=== PATIENT | female | born 1955 | race Caucasian/White ===

== ENCOUNTER 2024-01-03 06:16 | Inpatient (IN) | payer OTHER, SELFPAY ==
[2023-12-27 08:38] VITALS: BMI 25.4
[2023-12-27 08:56] LABS: Hematocrit 34.4 % (37.0-47.0); Hemoglobin 10.3 g/dL (12.0-16.0); Mean Corp Hgb Conc. 29.9 g/dL (33.0-37.0); Mean Corpuscular Hgb 21.1 pg (27.0-31.0); Mean Corpuscular Volume 70.6 fL (81.0-99.0); Platelet Count 399 10^3/uL (130-400); Red Blood Cell Count 4.87 10^6/uL (4.20-5.40); Red Cell Dist. Width 20.3 % (11.5-14.5); White Blood Cell Count 11.1 10^3/uL (4.8-10.8)
[2023-12-27 09:26] LABS: Blood Urea Nitrogen 15 mg/dl (7-17); Calcium 9.4 mg/dl (8.4-10.2); Carbon Dioxide 25 mmol/L (22-30); Chloride 103 mmol/L (98-107); Estimated Creatinine Clearance 86 ml/min; Glucose 102 mg/dl (70-99); Potassium 4.5 mmol/L (3.5-5.1); Sodium 138 mmol/L (135-145); eGFR > 60.00
[2023-12-27 09:36] LABS: INR 1.13; PT 14.3 Sec (11.4-14.6)
[2023-12-27 09:37] LABS: APTT 35.4 Sec (23.4-35.0)
[2024-01-03] VITALS (13 sets, daily range): BP systolic 91–126; BP diastolic 45–71; BMI 25.4
[2024-01-03] MEDS: NORMOSOL-R 1000 IV (07:10)
[2024-01-03] MEDS: ZOFRAN 4 MG IV (10:56)
[2024-01-03] MEDS: DILAUDID 0.5 MG IV ×4 (10:59→23:05)
[2024-01-03 11:16] LABS: % Basophils 0.4 % (0-2); % Eosinophils 0.4 % (0-6); % Immature Granulocytes 0.5 % (0-0.5); % Lymphocytes 6.3 % (20.5-51.1); % Monocytes 2.7 % (1.7-9.3); % Neutrophils 89.7 % (42.2-75.2); Absolute Basophils 0.1 10^3/uL (0-0.2); Absolute Eosinophils 0.1 10^3/uL (0-0.7); Absolute Immature Granulocytes 0.1 10^3/uL (0-0.05); Absolute Lymphocytes 0.9 10^3/uL (1.2-3.4); Absolute Monocytes 0.4 10^3/uL (0.1-0.6); Absolute Neutrophils 12.2 10^3/uL (1.4-6.5); Hematocrit 33.1 % (37.0-47.0); Hemoglobin 9.9 g/dL (12.0-16.0); Mean Corp Hgb Conc. 29.9 g/dL (33.0-37.0); Mean Corpuscular Hgb 21.3 pg (27.0-31.0); Mean Corpuscular Volume 71.2 fL (81.0-99.0); Mean Platelet Volume 8.2 fL (7.4-10.4); Nucleated Red Blood Cells % 0 %; Platelet Count 315 10^3/uL (130-400); Red Blood Cell Count 4.65 10^6/uL (4.20-5.40); Red Cell Dist. Width 20.5 % (11.5-14.5); White Blood Cell Count 13.6 10^3/uL (4.8-10.8)
[2024-01-03 11:27] LABS: Blood Urea Nitrogen 10 mg/dl (7-17); Calcium 8.2 mg/dl (8.4-10.2); Carbon Dioxide 23 mmol/L (22-30); Chloride 106 mmol/L (98-107); Estimated Creatinine Clearance 86 ml/min; Glucose 145 mg/dl (70-99); Potassium 4.3 mmol/L (3.5-5.1); Sodium 135 mmol/L (135-145); eGFR > 60.00
[2024-01-03] MEDS: DEMEROL 12.5 MG IV (11:31)
[2024-01-03] MEDS: NSS 1000 IV ×2 (11:36→19:34)
--- NOTE | 2024-01-03 12:37 | PTCARENOTE ---
Patient admitted from pac[facility] post Left laparoscopic hand assisted radical nephrectomy.The patient reports her pain at a 5-6 out of 10 but then will fall asleep.Vital signs are stable.All 3 incisions are open to air with no drainage.The patient is in
her bed with the call ramos in reach and her family at the bedside.
[2024-01-03 14:29] LABS: Hepatitis C Antibody Negative (Negative)
[2024-01-03] MEDS: REGLAN 10 MG IV (15:00)
[2024-01-03] MEDS: MAG-TAB SR 84 MG PO (17:07)
[2024-01-03] MEDS: SENOKOT 8.59999999999999964 MG PO (19:34)
[2024-01-03] MEDS: FLUSH (NSS) 1 FLUSH IV (23:04)
[2024-01-04 03:12] VITALS: BP 97/64
[2024-01-04] MEDS: PERCOCET 5/325 2 TABLET PO ×4 (04:43→21:01)
[2024-01-04] MEDS: SYNTHROID 75 MCG PO (05:55)
[2024-01-04 06:26] LABS: Hematocrit 32.6 % (37.0-47.0); Hemoglobin 9.5 g/dL (12.0-16.0); Mean Corp Hgb Conc. 29.1 g/dL (33.0-37.0); Mean Corpuscular Hgb 21.1 pg (27.0-31.0); Mean Corpuscular Volume 72.4 fL (81.0-99.0); Mean Platelet Volume 8.2 fL (7.4-10.4); Platelet Count 337 10^3/uL (130-400); Red Cell Dist. Width 20.2 % (11.5-14.5); White Blood Cell Count 15.8 10^3/uL (4.8-10.8)
[2024-01-04 06:54] LABS: Blood Urea Nitrogen 14 mg/dl (7-17); Calcium 8.8 mg/dl (8.4-10.2); Carbon Dioxide 23 mmol/L (22-30); Chloride 105 mmol/L (98-107); Estimated Creatinine Clearance 57 ml/min; Glucose 110 mg/dl (70-99); Potassium 4.6 mmol/L (3.5-5.1); Sodium 135 mmol/L (135-145); eGFR > 60.00
[2024-01-04 07:58] VITALS: BP 124/65
[2024-01-04] MEDS: SENOKOT 8.59999999999999964 MG PO ×2 (08:01→20:11)
--- NOTE | 2024-01-04 10:46 | CM ---
Addendum entered by Sdaa Galvez 01/04/24 14:08:
Accepted by [facility] for home care needs
Fax- [phone]
Original Note:
Chart reviewed. Spoke with pt at bedside
Pt lives with her adult grandson in multi-story home
Independent, retired, driving prior to admission
Has dme - rolling walker, shower chair, cane and commode in home
Denies past HH/SNF
PCP - Dr Chandan Gordon
Pharm - [facility], [place]
Discussed IMM
Received consult for VN - no preference - will refer to [facility]
CM will follow for d/c needs
Plan - home with - [facility]
[2024-01-04 11:13] VITALS: BP 121/77
--- NOTE | 2024-01-04 12:07 | W.PN.URO.CBU ---
Today's Communication / Plan
-
Post op care
discharge planning
Assessment / Plan
-
68F s/p lap hand assist L radical nephrectomy 01/03
- OOB/ambulate
- IS
- Regular diet
- AM labs and vitals stable
- CM for home care
- Plan for discharge tomorrow
Diagnosis
-
Date of Service: January 04, 2024
-
Patient Diagnosis:
L renal mass
Post Op Day:
s/p L nephrectomy 01/03
Subjective
-
adequate pain control
tolerating diet
has not ambulated
Objective
-
Vital Signs
Temp Pulse Resp BP Pulse Ox
97.8 F 70 18 121/77 93
01/04/24 11:13 01/04/24 11:13 01/04/24 11:13 01/04/24 11:13 01/04/24 11:13
Intake and Output
01/03/24 01/04/24 01/05/24
06:59 06:59 06:59
Intake Total 3750 / 3750
Output Total 2074
Balance 1675 / 1675
Intake:
Oral fluids 1800 / 1800
IV fluids (Total) 1950 / 1950
normosol 250 / 250
nss 50 / 50
Output:
Urine, [place] 2074
Laboratory Results
01/04/24 05:16
01/04/24 05:16
Physical Exam
-
General - well developed, well nourished, no acute distress
Chest - clear
Abdomen - soft, non-tender, positive bowel sounds, no CVAT, no incisional pain or distention
Skin - warm & dry with no rash
Neuro - AOx3, no motor deficits
Extremities - no clubbing, no cyanosis, no edema
Incision - clean, dry
Dressing - clean, dry, intact
[2024-01-04] MEDS: ZOFRAN 4 MG IV (12:40)
[2024-01-04 15:23] VITALS: BP 104/61
[2024-01-04] MEDS: MAG-TAB SR 84 MG PO (17:16)
[2024-01-04 23:39] VITALS: BP 115/63
[2024-01-05 06:20] LABS: Hematocrit 31.7 % (37.0-47.0); Hemoglobin 9.5 g/dL (12.0-16.0); Mean Corpuscular Hgb 21.1 pg (27.0-31.0); Mean Corpuscular Volume 70.4 fL (81.0-99.0); Mean Platelet Volume 7.9 fL (7.4-10.4); Platelet Count 348 10^3/uL (130-400); Red Cell Dist. Width 20.5 % (11.5-14.5); White Blood Cell Count 10.3 10^3/uL (4.8-10.8)
[2024-01-05] MEDS: SYNTHROID 75 MCG PO (06:21)
[2024-01-05 07:03] LABS: Blood Urea Nitrogen 16 mg/dl (7-17); Calcium 8.9 mg/dl (8.4-10.2); Carbon Dioxide 28 mmol/L (22-30); Chloride 104 mmol/L (98-107); Estimated Creatinine Clearance 43 ml/min; Glucose 88 mg/dl (70-99); Potassium 4.9 mmol/L (3.5-5.1); Sodium 139 mmol/L (135-145)
[2024-01-05 08:00] VITALS: BP 116/64
[2024-01-05] MEDS: PERCOCET 5/325 1 TABLET PO (10:01)
[2024-01-05] MEDS: SENOKOT PO (10:03)
--- NOTE | 2024-01-05 10:20 | CM ---
Chart reviewed. Spoke with pt at bedside
Planned d/c for today
Has ride to home
[facility] accepted for home [facility]
Plan - d/c to home with [facility] - [facility] when medically stable
[facility] -Fax- [phone]
--- NOTE | 2024-01-05 11:50 | W.PN.URO.CBU ---
Today's Communication / Plan
-
Discharge
Assessment / Plan
-
68F s/p lap hand assist L radical nephrectomy 01/03
- OOB/ambulate
- IS
- Regular diet
- AM labs and vitals stable
- CM for home care
- Discharge today
Diagnosis
-
Date of Service: January 05, 2024
-
Patient Diagnosis:
L renal mass
Post Op Day:
s/p L nephrectomy 01/03
Subjective
-
feeling well, minimal pain well controlled
ambulated
tolerating diet
mild nausea no vomiting
Objective
-
Vital Signs
Temp Pulse Resp BP Pulse Ox
97.7 F 64 18 116/64 93
01/05/24 08:00 01/05/24 08:00 01/05/24 08:00 01/05/24 08:00 01/05/24 08:00
Intake and Output
01/04/24 01/05/24 01/06/24
06:59 06:59 06:59
Intake Total 3750 / 3750 1200 / 1200
Output Total 2074
Balance 1675 / 1675 1200 / 1200
Intake:
Oral fluids 1800 / 1800 1200 / 1200
IV fluids (Total) 1950 / 1950
normosol 250 / 250
nss 50 / 50
Output:
Urine, [place] 2074
Other:
Number of approximated MODERATE 1
amounts of urine
Number of approximated LARGE 1
amounts of urine
Laboratory Results
01/05/24 05:32
01/05/24 05:32
Physical Exam
-
General - well developed, well nourished, no acute distress
Chest - clear bilaterally
Abdomen - soft, non-tender, positive bowel sounds, no CVAT
Skin - warm & dry with no rash
Neuro - AOx3, no motor deficits
Extremities - no clubbing, no cyanosis, no edema
Incision - clean, dry
Dressing - clean, dry, intact
--- NOTE | 2024-01-05 13:30 | W.DS.TRANS ---
DC Summary - Coordinator Of Online Programs
-
Discharge Instructions:
Sleep Apnea Risk Low
Discharge Diagnosis/Procedures Left renal mass
Laparoscopic left nephrectomy
Diet No restrictions
Activity No strenuous activity
Additional Activity avoid lifting and straining for 4 weeks post
surgery
Driving Restrictions don't drive while taking percocet
Bathing Restrictions OK to Shower
Wound Care gently rinse incisions in the shower. Don't
scrub or pick off skin glue
Instructions:
Stand-Alone Forms:
Changes to Home Medications: No
Discharge Medications:
DC Medications w/original date entered in [employer]
ascorbic acid (vitamin C) 500 mg tablet (Vitamin C) 500 mg PO DAILY PRN supplement 11/12/23
bismuth subsalicylate 262 mg/15 mL oral suspension (Pepto-Bismol) 524 mg PO DAILYPRN PRN stomach discomfort 11/12/23
levothyroxine 75 mcg tablet 75 mcg PO DAILY Thyroid 11/12/23
magnesium 250 mg tablet 250 mg PO QPM Supplement 11/12/23
vitamin B complex 1 tab PO DAILY Supplement 11/12/23
cholecalciferol (vitamin D3) 50 mcg (2,000 unit) tablet (Vitamin D3) 50 mcg PO QPM Supplement 12/30/23
omega-3 fatty acids 1,000 mg PO DAILY Supplement 12/30/23
ondansetron 4 mg disintegrating tablet 4 mg PO Q8H PRN nausea #15 tabs 01/05/24
oxycodone-acetaminophen 5 mg-325 mg tablet 1 tab PO Q4HPRN PRN moderate pain #15 tabs 01/05/24
Home Medication Changes
Pending Results: Yes
Additional Pending Results:
pathology
== END 2024-01-05 15:53 | disposition home health service (06) | DRG 658 ==
LOC: 2 SOUTH 06:16
PROVIDERS: ADMITTING PHYSICIAN Urology; FAMILY PHYSICIAN Family Medicine
PROC: 0TT14ZZ Resection of Left Kidney, Percutaneous Endoscopic Approach (ICD-10-PCS; 2024-01-03)
DX: C64.2 Malignant neoplasm of left kidney, except renal pelvis (principal); N28.89 Other specified disorders of kidney and ureter; Z88.0 Allergy status to penicillin; Z88.5 Allergy status to narcotic agent
CPT/HCPCS: 88307; 36415; 80048; 85025; 85027; 85610; 85730; 86803; 86850; 86900; 86901; 88341; 88342; 93005

== ENCOUNTER 2024-07-08 23:04 | Inpatient (IN) | payer OTHER, SELFPAY ==
[2024-07-08 14:50] VITALS: BP 133/85
[2024-07-08 15:18] LABS: Urine Albumin Negative (Neg - Trace); Urine Bilirubin Negative (Negative); Urine Character Clear (Clear); Urine Color Yellow; Urine Glucose Negative (Negative); Urine Ketone Negative (Negative); Urine Leukocyte Trace (Negative); Urine Nitrite Negative (Negative); Urine Occult Blood Negative (Negative); Urine Urobilinogen Negative (Neg - 1+)
[2024-07-08 15:21] LABS: % Basophils 0.5 % (0-2); % Eosinophils 0.8 % (0-6); % Immature Granulocytes 0.3 % (0-0.5); % Lymphocytes 19.9 % (20.5-51.1); % Monocytes 7.9 % (1.7-9.3); % Neutrophils 70.6 % (42.2-75.2); Absolute Basophils 0.1 10^3/uL (0-0.2); Absolute Eosinophils 0.1 10^3/uL (0-0.7); Absolute Lymphocytes 2.6 10^3/uL (1.2-3.4); Absolute Neutrophils 9.2 10^3/uL (1.4-6.5); Hematocrit 37.5 % (37.0-47.0); Hemoglobin 12.4 g/dL (12.0-16.0); Mean Corp Hgb Conc. 33.1 g/dL (33.0-37.0); Mean Corpuscular Hgb 26.1 pg (27.0-31.0); Mean Corpuscular Volume 78.9 fL (81.0-99.0); Mean Platelet Volume 8.1 fL (7.4-10.4); Nucleated Red Blood Cells % 0 %; Platelet Count 283 10^3/uL (130-400); Red Blood Cell Count 4.75 10^6/uL (4.20-5.40); Red Cell Dist. Width 15.6 % (11.5-14.5)
[2024-07-08 15:30] LABS: Urine Bacteria Few (Negative); Urine Red Blood Cell 0-2 /HPF (0-2); Urine White Cell 0-2 /HPF (0-5)
[2024-07-08 15:34] LABS: ALT (SGPT) 16 U/L (0-35); AST (SGOT) 28 U/L (14-36); Albumin 4.5 g/dl (3.5-5.0); Alkaline Phosphatase 119 U/L (38-126); Blood Urea Nitrogen 17 mg/dl (7-17); Calcium 9.7 mg/dl (8.4-10.2); Carbon Dioxide 25 mmol/L (22-30); Chloride 100 mmol/L (98-107); Glucose 110 mg/dl (70-99); Lipase 190 U/L (23-300); Sodium 136 mmol/L (135-145); Total Bilirubin 0.6 mg/dl (0.2-1.3); Total Protein 7.7 g/dl (6.3-8.2)
[2024-07-08] MEDS: ZOFRAN 4 MG IV (19:01)
[2024-07-08] MEDS: DILAUDID 0.5 MG IV (19:01)
[2024-07-08] MEDS: NSS 1000 IV (19:02)
[2024-07-08 20:00] VITALS: BP 123/81
[2024-07-08 21:00] VITALS: BP 134/72
[2024-07-08 21:00] LABS: COVID-19 Antigen Negative (Negative)
[2024-07-08] MEDS: ATIVAN 0.5 MG IV (21:11)
--- NOTE | 2024-07-08 21:18 | ED.GENMED ---
History of Present Illness
<Lexie Valero NP - Last Filed: 07/09/24 18:38>
General
Chief Complaint: Back Pain
Source: patient
Exam Limitations: none
Time Seen by Provider: 07/08/24 17:56
Nursing documentation reviewed up to this point in time: agreed with
History of Present Illness
History of Present Illness:
Patient to ED with complaint ofworsening back pain. States she was trying to open a large container approx 1 mos ago and pain started after that. SInce then pain continues to worsen. Denies fever/chills, n/v/d. No bowel or baldder issues. Denies
any weakness in extremities. Pain does not radiate. No saddle paresthesia. Brought to ED by family for eval. SHe was here in Oct, dx with cholecystitis, underwent cholecystectomy. During that work up, a tumor was noted on her left kidney. She
had an MRI in November comfirming cancer. SHe had a left nephrectomy in November. No chemo/radiation warranted according to patient. States she has been feeling well until 1 mos ago. Has Chest/abd/pelvis CT ordered for outpatient tomorrow. WIll
obtain tonight,
Past History
<Lexie Valero NP - Last Filed: 07/09/24 18:38>
Past History
ED Past Medical History: Cancer (Kidney) and Hypothyroidism (Gerson's thyroiditis)
ED Past Surgical History: Cholecystectomy, Orthopedic and Tonsilectomy
Social History
Tobacco: Non-smoker
Alcohol: None
Drug: None
Personal: Single
Living: with family
Employment: Employed (Works in childcare)
Review of Systems
<Lexie Valero NP - Last Filed: 07/09/24 18:38>
Review of Systems
Allergies reviewed?: Yes
All Other Systems: ROS reviewed and negative except as documented in HPI and ROS
Constitutional: Reports no symptoms
EENT: Reports no symptoms
Respiratory: Reports no symptoms
Cardiac: Reports no symptoms
ABD/GI: Reports no symptoms
: Reports no symptoms
Musculoskeletal: Reports back pain (Pain to bilateral lower back)
Skin: Reports no symptoms
Neurological: Reports no symptoms
Psychiatric: Reports no symptoms
Phy Exam
<Lexie Valero VEHICLE REFINISHER - Last Filed: 07/09/24 18:38>
General Physical Exam
General Presentation: well appearing and no apparent distress
General age: appears stated age
General Skin: warm and dry
General Habitus: normal
General Mental: alert
Cardiovascular Exam
Cardiovascular Exam: regular rate/rhythm and no edema
Pulmonary Exam
Pulmonary Exam: lungs clear and no respiratory distress
Gastrointestinal Exam
Gastrointestinal Exam: normal bowel sounds, non tender and soft
Reflexes
Reflexes: +3: Left patellar, +3: Right patellar, +3: Left achilles and +3: Right achilles
Musculoskeletal Exam
Musculoskeletal Exam: full ROM and neuro vasc intact
Skin Exam
Skin Exam: normal color, warm/dry and no rash
Psychiatric Exam
Psychiatric Exam: normal mood/affect
Course
<Lexie Valero VEHICLE REFINISHER - Last Filed: 07/09/24 18:38>
Orders/Labs/Results
Orders:
Orders
07/08/24 15:02
CBC/With Diff [Complete Blood Count/With Diff] Urgent
CMP [Comprehensive Metabolic Panel] Urgent
Lipase Urgent
Urinalysis Reflex To Culture Urgent
Date Specimen was Collected: 07/08/24
Time Specimen was Collected: 14:53
Urine Microscopic Reflex Cult Urgent
07/08/24 18:46
HYDROmorphone [Dilaudid] 0.5 mg IV NOW STA
Ondansetron Injectable [Zofran] 4 mg IV NOW STA
07/08/24 18:47
0.9% Sodium Chloride 1000 ml [Nss] 1,000 ml IV BOLUS
07/08/24 18:48
CT Chest/abd/pel W Iv Cont Urgent
Comment:
Reason For Exam: severe back pain. S/p left nephrectomy. Hx CA
07/08/24 20:30
COVID-19 Antigen Urgent
Source: Nasal Swab
07/08/24 21:05
Lorazepam [Ativan] 2 mg .ROUTE .STK-MED ONE
07/08/24 21:06
Lorazepam [Ativan] 0.5 mg IV NOW STA
07/08/24 21:33
Neurosurgery Consult Urgent
Consulting Provider: Jasmin Santiago
Was physician already notified: Yes
ONCOLOGY CONSULT Urgent
Consulting Provider: Vivienne Swanson
Was physician already notified: Yes
07/08/24 21:[address] Non Medication Order As Directed
Physician Order: TLSO brace
Above order entered?: Yes
07/08/24 22:47
Admit/Transfer Patient As Directed
Co-Sign Provider:
Level of Care: Inpatient admission
Assign to:: Medical/Surgical
Physician / Group: shmuel/hospitalist
Diagnosis: [id number] vertebral body w epidural extension of the soft tissue
Reason for Hospitalization: fracture of the T11 vertebral body with epidural extension of the soft tissue mass
Expected length of stay greater than two midnights?: Yes
ELOS- Estimated Length of Stay in days: 4
I certify the patient meets the requirements for IP care: Yes
PRN Pain Medication Management As Directed
May give lesser potent ordered pain med per pt: Yes
preference::
Protocol:: Medication orders for pain may be administered in a
manner that supports deferring to patient preference
when the pt is:
- Requesting an ordered lesser potent pain medication.
Least to most potent pain medications are defined
as: acetaminophen < NSAID < tramadol < opioids
(morphine, oxycodone, hydromorphone).
- Requesting a lesser dose of the same medication IF
ORDERED.
- Requesting a less intrusive route of administration
if both routes are prescribed by the provider (PO <
IV).
07/08/24 22:50
Code Status As Directed
Resuscitation Status: Full Code
07/08/24 23:40
0.9% Sodium Chloride 1000 ml [Nss] 1,000 ml IV 75 mls/hr
Acetaminophen [Tylenol] 650 mg PO Q4HPRN PRN
Bisacodyl [Dulcolax] 10 mg RECTAL [id number] PRN
Docusate W/Senna [Senokot-S] 1 tablet PO BIDPRN PRN
HYDROmorphone [Dilaudid] 0.5 mg IV Q4HPRN PRN
Lorazepam [Ativan] 0.5 mg IV ONCE PRN
Polyethylene Glycol Powder [Miralax] 17 grams PO DAILYPRN PRN
07/08/24 23:40
Activity As Directed
Activity Level: With Assistance
Neurological Checks As Directed
Frequency: q4h
Pneumatic Compression Sleeves As Directed
Type: Knee high
Vital Signs As Directed
Frequency: Per unit guidelines
DX Deep Vein Thrombosis Video Routine
07/09/24 06:00
Levothyroxine [Synthroid] 75 mcg PO DAILY @ 0600
07/09/24 09:27
Basic Metabolic Panel IN AM
Complete Blood Count/With Diff IN AM
Abnormal Lab Results
07/08/24
15:02
WBC 13.0 H 10^3/uL
(4.8-10.8)
MCV 78.9 L fL
(81.0-99.0)
MCH 26.1 L pg
(27.0-31.0)
RDW 15.6 H %
(11.5-14.5)
Absolute Neuts (auto) 9.2 H 10^3/uL
(1.4-6.5)
Absolute Monos (auto) 1.0 H 10^3/uL
(0.1-0.6)
Lymphocytes % 19.9 L %
(20.5-51.1)
Creatinine 1.2 H mg/dL
(0.6-1.0)
Glucose 110 H mg/dl
(70-99)
Leukocyte Esterase Rfl Trace A
(Negative)
Urine Bacteria (Reflex) Few A
(Negative)
07/08/24 15:02
07/08/24 15:02
Vital Signs
Initial and Last Documented VS:
Initial Vital Signs
Temp Pulse Resp BP Pulse Ox
97.6 F 70 18 133/85 97
07/08/24 14:50 07/08/24 14:50 07/08/24 14:50 07/08/24 14:50 07/08/24 14:50
Last Documented Vital Signs
Temp Pulse Resp BP Pulse Ox
98.2 F 74 16 157/84 96
07/09/24 15:10 07/09/24 15:10 07/09/24 15:10 07/09/24 15:10 07/09/24 15:10
<Rylan Kothari, DO - Last Filed: 07/08/24 23:07>
Orders/Labs/Results
Orders:
Orders
07/08/24 15:02
CBC/With Diff [Complete Blood Count/With Diff] Urgent
CMP [Comprehensive Metabolic Panel] Urgent
Lipase Urgent
Urinalysis Reflex To Culture Urgent
Date Specimen was Collected: 07/08/24
Time Specimen was Collected: 14:53
Urine Microscopic Reflex Cult Urgent
07/08/24 18:46
HYDROmorphone [Dilaudid] 0.5 mg IV NOW STA
Ondansetron Injectable [Zofran] 4 mg IV NOW STA
07/08/24 18:47
0.9% Sodium Chloride 1000 ml [Nss] 1,000 ml IV BOLUS
07/08/24 18:48
CT Chest/abd/pel W Iv Cont Urgent
Comment:
Reason For Exam: severe back pain. S/p left nephrectomy. Hx CA
07/08/24 20:30
COVID-19 Antigen Urgent
Source: Nasal Swab
07/08/24 21:05
Lorazepam [Ativan] 2 mg .ROUTE .STK-MED ONE
07/08/24 21:06
Lorazepam [Ativan] 0.5 mg IV NOW STA
07/08/24 21:33
Neurosurgery Consult Urgent
Consulting Provider: Jasmin Santiago
Was physician already notified: Yes
ONCOLOGY CONSULT Urgent
Consulting Provider: Vivienne Swanson
Was physician already notified: Yes
07/08/24 21:[address] Non Medication Order As Directed
Physician Order: TLSO brace
Above order entered?: Yes
07/08/24 22:47
Admit/Transfer Patient As Directed
Co-Sign Provider:
Level of Care: Inpatient admission
Assign to:: Medical/Surgical
Physician / Group: shmuel/hospitalist
Diagnosis: [id number] vertebral body w epidural extension of the soft tissue
Reason for Hospitalization: fracture of the T11 vertebral body with epidural extension of the soft tissue mass
Expected length of stay greater than two midnights?: Yes
ELOS- Estimated Length of Stay in days: 4
I certify the patient meets the requirements for IP care: Yes
PRN Pain Medication Management As Directed
May give lesser potent ordered pain med per pt: Yes
preference::
Protocol:: Medication orders for pain may be administered in a
manner that supports deferring to patient preference
when the pt is:
- Requesting an ordered lesser potent pain medication.
Least to most potent pain medications are defined
as: acetaminophen < NSAID < tramadol < opioids
(morphine, oxycodone, hydromorphone).
- Requesting a lesser dose of the same medication IF
ORDERED.
- Requesting a less intrusive route of administration
if both routes are prescribed by the provider (PO <
IV).
07/08/24 22:50
Code Status As Directed
Resuscitation Status: Full Code
07/08/24 23:40
0.9% Sodium Chloride 1000 ml [Nss] 1,000 ml IV 75 mls/hr
Acetaminophen [Tylenol] 650 mg PO Q4HPRN PRN
Bisacodyl [Dulcolax] 10 mg RECTAL [id number] PRN
Docusate W/Senna [Senokot-S] 1 tablet PO BIDPRN PRN
HYDROmorphone [Dilaudid] 0.5 mg IV Q4HPRN PRN
Lorazepam [Ativan] 0.5 mg IV ONCE PRN
Polyethylene Glycol Powder [Miralax] 17 grams PO DAILYPRN PRN
07/08/24 23:40
Activity As Directed
Activity Level: With Assistance
Neurological Checks As Directed
Frequency: q4h
Pneumatic Compression Sleeves As Directed
Type: Knee high
Vital Signs As Directed
Frequency: Per unit guidelines
DX Deep Vein Thrombosis Video Routine
07/09/24 06:00
Levothyroxine [Synthroid] 75 mcg PO DAILY @ 0600
07/09/24 09:27
Basic Metabolic Panel IN AM
Complete Blood Count/With Diff IN AM
Abnormal Lab Results
07/08/24
15:02
WBC 13.0 H 10^3/uL
(4.8-10.8)
MCV 78.9 L fL
(81.0-99.0)
MCH 26.1 L pg
(27.0-31.0)
RDW 15.6 H %
(11.5-14.5)
Absolute Neuts (auto) 9.2 H 10^3/uL
(1.4-6.5)
Absolute Monos (auto) 1.0 H 10^3/uL
(0.1-0.6)
Lymphocytes % 19.9 L %
(20.5-51.1)
Creatinine 1.2 H mg/dL
(0.6-1.0)
Glucose 110 H mg/dl
(70-99)
Leukocyte Esterase Rfl Trace A
(Negative)
Urine Bacteria (Reflex) Few A
(Negative)
07/08/24 15:02
07/08/24 15:02
Vital Signs
Initial and Last Documented VS:
Initial Vital Signs
Temp Pulse Resp BP Pulse Ox
97.6 F 70 18 133/85 97
07/08/24 14:50 07/08/24 14:50 07/08/24 14:50 07/08/24 14:50 07/08/24 14:50
Last Documented Vital Signs
Temp Pulse Resp BP Pulse Ox
98.2 F 74 16 157/84 96
07/09/24 15:10 07/09/24 15:10 07/09/24 15:10 07/09/24 15:10 07/09/24 15:10
<Lexie Valero NP - Last Filed: 07/09/24 18:38>
*Radiology
Radiology exam reviewed: radiology read reviewed
*Pulse Oximetry
Patient hypoxic: no
*Critical Care Note
Total Time (30-74mins, 75-104mins- exclusive of procedures): Not Applicable
<Lexie Valero NP - Last Filed: 07/09/24 18:38>
Update Note
Update Note:
Results of CT discussed wt patient and family. Case also discussed with Dr. Santiago. Requests MRI in AM, TLSO brace. Patient is admitted to hospitalist service. SHe is agreeable to plan. Dr. Swanson (oncology) consulted also
ED Attending Note
<Lexie Valero NP - Last Filed: 07/09/24 18:38>
-
Portions of this chart may have been created with voice recognition software.� Occasional wrong word or��sound alike� substitutions may have occurred due to the inherent limitations of voice recognition software.
<Rylan Kothari DO - Last Filed: 07/08/24 23:07>
ED Attending Note
Patient seen and examined by attending physician: Yes
I performed the substantive portion of visit, reviewed & personally made and approve the management plan that is documented in note by myself or TAM.: Yes
ED Attending Note:
68-year-old female with unfortunate history of kidney cancer who presents after she developed back pain. unfortunately CT shows suspected spine mets. Exam: No focal lower extremity deficits. Assessment and plan: VEHICLE REFINISHER was able to discussed with spine
surgery. Admit. Likely could benefit from TLSO brace and MRI
Discharge Plan
Departure
Patient Disposition: Admit
Date of Disposition: 07/08/24
Time of Disposition: 21:27
Presentation/result/management discussed w/ accepting MD/DO: Hospitalist
Discharge Problem:
Back pain, Pathologic fracture of vertebra, thoracic canal stenosis
Interventions
Interventions:
*General Assessment Last Done: 07/08/24 19:03
*Neglect/Abuse Screening Last Done: 07/08/24 19:03
*Nursing Disposition Last Done: 07/08/24 23:33
ED-Musculoskeletal Assessment Last Done: 07/08/24 19:03
Discharge Date and Time
Discharge Date/Time: 07/08/24 23:33
Musculoskeletal Injury Exam
<Lexie Valero NP - Last Filed: 07/09/24 18:38>
Musculoskeletal Injury Exam
Bilateral Lower Back:
Pain with Movement?: Moderate
Tender to palpation?: Moderate
Soft tissue swelling?: None
External deformity and angulation?: None
Joint effusion?: None
Hematoma-local bleeding into tissue?: None
Strain- Sprain- Tear (Connective tissue injury)?: None
Crepitus with movement?: No
Joint instability?: No
Malalignment/deformity?: No
Range of motion: Full
Distal skin color and temperature: normal-warm & good color
Capillary Refill: normal
Normal distal neurovascular exam?: Yes
Peripheral Pulses: posterior tibial (left): 3+, posterior tibial (right): 3+, dorsalis pedis (left): 3+ and dorsalis pedis (right): 3+
--- NOTE | 2024-07-08 22:18 | HPS.HSE ---
Addendum entered and electronically signed by Alexandria Carter, DO 07/08/24 23:09:
Pt requesting Ativan prior to MRI in order to tolerate MRI-ordered prn dose for this.
Original Note:
Family Physician
-
Family Physician: NOT KNOW UNKNOWN - PT DOES
Chief Complaint
-
back pain, worsening
History of Present Illness
The patient is a 68 yo woman with PMH significant for hypothyroidism and status post Laparoscopic hand assisted left radical nephrectomy on 01/03/2024 for large left renal mass without post-operative complications, who had follow-up with
[facility], presents to ED due to low back pain that is persistent and intractable, worsening for the past 1 month. No fever, no chills, no bowel or bladder dysfunction, no motor deficits that are new. She was scheduled for OP CT c/a/p for
tomorrow. Imaging today shows
Medical History
Past Medical History
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
Additional Past Medical History:
Hypothyroidism
Past Surgical History: Reports Cholecystectomy, Orthopedic (left ankle sx with plate 02/2019), Tonsilectomy (and adenoidectomy) and Other (Laparoscopic hand assisted left radical nephrectomy on 01/03/2024)
Social History
Unable to obtain full social history at this time due to: Other
Tobacco: Non-smoker
Alcohol: None
Drug: None
Family History
Family History: CAD (brother-SC and stent), Cancer (colon and esophageal-cousins) and Other
Allergies / Home Medications
Allergies reflects when Allergies were last updated in [employer].
Home Medications with original date entered in [employer]
Allergy/Medication List:
Allergies
Allergy/AdvReac Type Severity Reaction Status Date / Time
hydrocodone Allergy HEADACHES, Verified 07/08/24 14:52
SHAKEY
Penicillins Allergy HEMOLYTIC Verified 07/08/24 14:52
ANEMIA
pollen extracts Allergy ENVIRONMENTAL Verified 07/08/24 14:52
ALLERGIES
Home Medications
ascorbic acid (vitamin C) 500 mg tablet (Vitamin C) 500 mg PO DAILY PRN supplement 11/12/23
bismuth subsalicylate 262 mg/15 mL oral suspension (Pepto-Bismol) 524 mg PO DAILYPRN PRN stomach discomfort 11/12/23
levothyroxine 75 mcg tablet 75 mcg PO DAILY Thyroid 11/12/23
magnesium 250 mg tablet 250 mg PO QPM Supplement 11/12/23
vitamin B complex 1 tab PO DAILY Supplement 11/12/23
cholecalciferol (vitamin D3) 50 mcg (2,000 unit) tablet (Vitamin D3) 50 mcg PO QPM Supplement 12/30/23
omega-3 fatty acids 1,000 mg PO DAILY Supplement 12/30/23
ondansetron 4 mg disintegrating tablet 4 mg PO Q8H PRN nausea #15 tabs 01/05/24
oxycodone-acetaminophen 5 mg-325 mg tablet 1 tab PO Q4HPRN PRN moderate pain #15 tabs 01/05/24
Review of Systems
-
A 12 point ROS was completed and negative except as noted: Yes
Physical Exam
Vital Signs
Vital Signs
Temp Pulse Resp BP Pulse Ox
97.6 F 87 21 134/72 96
07/08/24 14:50 07/08/24 21:15 07/08/24 20:30 07/08/24 21:00 07/08/24 20:45
Physical Exam
General: Well Developed, Well Nourished, No Apparent Distress, Comfortable and Conversant
HEENT: NormoCephalic, Anicteric and Moist mucous membranes
Respiratory: Clear
Cardiac: S1/S2 and Regular Rhythm
GI: Soft, Non Tender and Non Distended
Musculoskeletal: No Clubbing, No Cyanosis and No Edema
Skin: Warm and Dry
Neuro: AO x 3, No Motor Deficits and Nonfocal/grossly intact
Psych: Calm
Laboratory Results
-
07/08/24 15:02
07/08/24 15:
Laboratory Results
Total Bilirubin 0.6 mg/dl (0.2-1.3) 07/08/24 15:
AST 28 U/L (14-36) 07/08/24 15:
ALT 16 U/L (0-35) 07/08/24 15:
Alkaline Phosphatase 119 U/L (38-126) 07/08/24 15:
Lipase 190 U/L (23-300) 07/08/24 15:
Impression/Plan
-
IMPRESSION:
#Clear cell renal cell carcinoma pathology 12/2023 s/p nephrectomy
#Pathologic fracture T11 with epidural extension soft tissue mass
-CT c/a/p show a pathologic fracture of the T11 vertebral body with epidural extension of the soft tissue mass and associated moderate/severe narrowing of the spinal canal at this level.
-The lesion appears to extend into the posterior elements on the left.
-Neurosurgery consulted from ED-rec is for MRI with and without contrast for further evaluation an evaluation of possible additional spinal metastases.
-TLSO brace - will get PT eval
-Oncology consultation
-noted definite metastatic disease within the abdomen or pelvis. No suspicious pulmonary nodules.
#Leukocytosis, WBC 13.0
-likely reactive, no evidence for acute infection at this time, monitor
#RADHA (baseline 0.9)
-Creat 1.2
-IVF and repeat creat in am
#Hypothyroidism
-cont Synthroid
Med rec pending at this time
DVT proph-PCDs
NPO p mn in case of procedure pending Neurosurgery recs
Full Code
[2024-07-08 23:40] VITALS: BP 137/76; BMI 31.1
[2024-07-09] MEDS: NSS 1000 IV (00:01)
[2024-07-09] MEDS: SYNTHROID 75 MCG PO (05:33)
[2024-07-09 07:30] VITALS: BP 118/66
[2024-07-09] MEDS: DILAUDID 0.5 MG IV (08:10)
[2024-07-09] MEDS: IMITREX 25 MG PO (08:10)
--- NOTE | 2024-07-09 09:29 | PTCARENOTE ---
Assumed care of pt from previous RN. Patient AAOx3, complaining of a headache, refusing PRN tylenol. Order for one time imitrex placed; administered with adequate relief. Patient and daughter at bedside updated on plan of care.
[2024-07-09 10:07] LABS: % Basophils 0.7 % (0-2); % Eosinophils 3.4 % (0-6); % Immature Granulocytes 0.4 % (0-0.5); % Monocytes 7.4 % (1.7-9.3); % Neutrophils 69.1 % (42.2-75.2); Absolute Basophils 0.1 10^3/uL (0-0.2); Absolute Eosinophils 0.3 10^3/uL (0-0.7); Absolute Lymphocytes 1.9 10^3/uL (1.2-3.4); Absolute Monocytes 0.7 10^3/uL (0.1-0.6); Absolute Neutrophils 6.8 10^3/uL (1.4-6.5); Hematocrit 34.5 % (37.0-47.0); Hemoglobin 11.1 g/dL (12.0-16.0); Mean Corp Hgb Conc. 32.2 g/dL (33.0-37.0); Mean Corpuscular Hgb 25.6 pg (27.0-31.0); Mean Corpuscular Volume 79.5 fL (81.0-99.0); Mean Platelet Volume 8.3 fL (7.4-10.4); Nucleated Red Blood Cells % 0 %; Platelet Count 245 10^3/uL (130-400); Red Blood Cell Count 4.34 10^6/uL (4.20-5.40); Red Cell Dist. Width 15.9 % (11.5-14.5); White Blood Cell Count 9.8 10^3/uL (4.8-10.8)
[2024-07-09] MEDS: ATIVAN 0.5 MG IV (10:20)
[2024-07-09] MEDS: NSS (PRESERVATIVE FREE) 0.25 ML IV (10:20)
[2024-07-09 10:51] LABS: Blood Urea Nitrogen 13 mg/dl (7-17); Calcium 8.9 mg/dl (8.4-10.2); Carbon Dioxide 24 mmol/L (22-30); Chloride 108 mmol/L (98-107); Estimated Creatinine Clearance 51 ml/min; Glucose 102 mg/dl (70-99)
[2024-07-09 11:09] LABS: Sodium 137 mmol/L (135-145)
--- NOTE | 2024-07-09 12:37 | CM ---
Addendum entered by Josefina Lyons 07/09/24 15:43:
Patient for transfer to [place].
Original Note:
Patient seen bedside with daughter, Kari, initial assessment completed. Patient resides independently in a multiple story home, 'a few' steps to enter. Patient reports having a quad cane at home, is interested in receiving a walker if possible.
Patient reports history with [facility] in past, denies SNF history. Patient PCP Dr. Gordon, will be switching to [facility] (appointment on 08/06) at Dr. Gordon is retiring. Pharmacy confirmed [facility] on [address], confirms prescription
coverage. Patient denies food, housing/utility, transportation insecurities at home. CM will continue to follow for all discharge planning needs.
Plan; will depend on medical needs, watch for [facility] needs, inquiring about walker.
[2024-07-09] MEDS: ROXICODONE 2.5 MG PO (14:31)
[2024-07-09 15:10] VITALS: BP 157/84
--- NOTE | 2024-07-09 16:11 | CON.NS ---
Consultation
-
Date/Time Consultation Performed: 07/09/2024; 16:30
Performing Provider: Pamela
Chief Complaint
History of Present Illness
This is a neurosurgical consultation on 68-year-old female, status post left radical nephrectomy in December 2023, for a large left renal mass, who presents with new onset of low back pain, intractable, over the past month. She had a CT in the
emergency room on 07/08/2024, which revealed pathologic fracture of the T11 vertebral body, with possible epidural extension of the soft tissue mass.
She underwent a new MRI scan, which reveals likely metastatic disease to the thoracic spine.
Patient reports that she had a nephrectomy at outside hospital, which revealed clear-cell carcinoma. She was seen by oncology at [facility], and it was not recommended that she needed any adjuvant treatment.
Patient now presents with 1 month history of back pain, with acute onset of severe back pain that started 1 day prior. She denies any radiating pain in legs, weakness or numbness or tingling in legs. She denies any bowel or bladder incontinence
Review of Systems
-
10 point review of systems including constitutional, ENT, cardiovascular, respiratory, GI, , neurologic, musculoskeletal, and logic, hematologic, was performed, and was negative, except for as stated in HPI.
Medication and Allergies
Home Medications
Home Medications
�Medication �Instructions �Recorded
ascorbic acid (vitamin C) 500 mg 500 mg PO DAILY PRN supplement 11/12/23
tablet (Vitamin C)
bismuth subsalicylate 262 mg/15 mL 524 mg PO DAILYPRN PRN stomach 11/12/23
oral suspension (Pepto-Bismol) discomfort
levothyroxine 75 mcg tablet 75 mcg PO DAILY Thyroid 11/12/23
magnesium 250 mg tablet 250 mg PO QPM Supplement 11/12/23
vitamin B complex 1 tab PO DAILY Supplement 11/12/23
cholecalciferol (vitamin D3) 50 25 mcg PO QPM Supplement 12/30/23
mcg (2,000 unit) tablet (Vitamin
D3)
omega-3 fatty acids 1,000 mg PO DAILY Supplement 12/30/23
ondansetron 4 mg disintegrating 4 mg PO Q8H PRN nausea #15 tabs 01/05/24
tablet
oxycodone-acetaminophen 5 mg-325 1 tab PO Q4HPRN PRN moderate pain 01/05/24
mg tablet #15 tabs
Allergies
Allergies
Allergy/AdvReac Type Severity Reaction Status Date / Time
hydrocodone Allergy HEADACHES, Verified 07/08/24 14:52
SHAKEY
Penicillins Allergy HEMOLYTIC Verified 07/08/24 14:52
ANEMIA
pollen extracts Allergy ENVIRONMENTAL Verified 07/08/24 14:52
ALLERGIES
Physical Exam
-
Exam:
Awake, alert, no apparent distress
Cranial nerves 2 through 12 are gross intact.
Motor: 5/5 strength bilaterally in upper extremities and lower extremities
Sensation to light touch intact bilaterally in upper extremities and lower extremities.
MRI of the thoracic spine performed on 07/09/2024 demonstrates enhancing lesion consistent with lytic osseous metastasis within the posterior aspect of the T11 vertebral body with resultant pathological fracture of the superior endplate. There is
posterior extension of the mass into the anterior epidural space. No obvious evidence of cord signal changes seen.
Also STIR signal hyperintensity is seen within the superior endplate of T12, consistent with likely superior endplate fracture as well.
Problems
-
Problem Status Onset Code
Pathologic fracture of vertebra M84.48XA
Back pain M54.9
Assessment / Plan
-
This is a 68-year-old female with a history of left nephrectomy, who presents with sudden onset of back pain. Imaging demonstrates likely pathological fracture at T11, secondary to metastasis.
Discussed with hematology/oncology, as well as hospitalist.
Recommend TLSO brace when the patient is weightbearing.
Recommend steroids 4 mg every 6 hours.
Recommend IR guided biopsy of T11 lesion for diagnosis.
Suggest radiation oncology consultation after diagnosis is made.
Hematology/oncology consultation
--- NOTE | 2024-07-09 16:39 | W.PN.HOSP.TC ---
Today's Communication/Plan
-
transfer [place]
pain control
Assessment / Plan
Assessment / Plan
MRI T spine
1. 2.8 cm LYTIC OSSEOUS METASTASIS in the left posterior aspect of the T11 VERTEBRAL BODY with osseous destruction of the posterior cortex and extension of the metastasis in the anterior epidural space. Mild spinal cord compression and central
canal stenosis at the T11 level.
2. Small acute fracture of the right side of the superior endplate of T12.
3. Moderate multilevel discogenic degenerative disease in the cervical spine with small disc-osteophyte complexes causing mild multilevel spinal cord compression.
4. Previous left nephrectomy.
5. Moderate scarring in the upper pole of the right kidney

1. T11 Vertebral body/epidural suspected metastatic disease
-Main complaint of his pain. Denies of having any lower extremity weakness/sensation change (has chronic LE neuropathy)
-MRI spine showing 2.8 cm lytic osseous metastatic lesion causing some spinal canal stenosis narrowing and mild cord compression
-Discussed imaging findings with neurosurgery, recommend initiation of dexamethasone 4mg q6h. TSLO brace
-Case discussed with oncology who recommended thyroid biopsy of the area to confirm diagnosis although difficult biopsy
-Patient does not want neurosurgery [place] and prefers to be transferred to [place].
-Patient may require inpatient radiation oncology evaluation and treatment which is also not available in [place].
-Starting patient on oral pain medication.
2. h/o Clear cell Left Renal cancer
s/p Radical nephrectomy in Jan 14
-Patient was evaluated postoperatively by oncology in light of clear margin and negative lymph node, pembrolizumab therapy was recommended but was felt to be high risk low benefit at that time
-No interim visit to oncology office required
3. Nausea/vomiting
-Currently not having symptoms.
-MRI brain was recommended by neurology as well to rule out brain metastasis although patient declined and would prefer to get it done at [facility]
4. RADHA
-Minimal, maintain on IV hydration
-Avoid nephrotoxic medication
-No concern of postrenal renal failure
5. Hypothyroidism
-maintain on home dose levothyroxine
Full code
Patient has been accepted by [facility] for neurosurgical evaluation and further treatment.
Total time spent : 55 mins
Anticipated Discharge: Within 24 hours
Subjective/Interval History
-
Date of Service: July 09, 2024
still having some pain in back
able to get around without assistance/walker
Objective Data
-
Labs:
Laboratory Results
07/09/24
09:27
WBC 9.8
Hgb 11.1 L
Hct 34.5 L
Plt Count 245
Sodium 137
Potassium 5.0
Chloride 108 H
Carbon Dioxide 24
BUN 13
Creatinine 1.2 H
Glucose 102 H
Calcium 8.9
Vital Signs:
Vital Signs
Temp Pulse Resp BP Pulse Ox
98.2 F 74 16 157/84 96
07/09/24 15:10 07/09/24 15:10 07/09/24 15:10 07/09/24 15:10 07/09/24 15:10
I&O
07/08/24 07/09/24 07/10/24
06:59 06:59 06:59
Intake Total 1080 / 1080
Balance 1080 / 1080
Review of Systems
-
Respiratory: Reports No Symptoms
Cardiac: Reports No Symptoms
Abdomen/GI: Reports No Symptoms
Physical Exam
-
General: No Apparent Distress and Comfortable
HEENT: Negative Oxygen
Respiratory: Clear to Auscultation
Cardiac: Regular Rhythm and S1/S2; Negative Murmur or Rub
GI: Soft, Nontender, Nondistended and Normal Bowel Sounds
Musculoskeletal: No Edema
Neuro: Awake, Alert, Oriented, No Motor Deficits and Nonfocal/Grossly Intact
Psych: Calm
[2024-07-09 18:47] LABS: Hepatitis C Antibody Negative (Negative)
--- NOTE | 2024-07-09 19:44 | CON.ONC ---
Impression
Impression
Hx clear cell RCC stage T2a, Nx, Mx
T11 path fx with epidural extension, suspect met recurrence of RCC
Nausea
Cancer-related pain
Plan
Plan
Case d/w hospitalist, Rad Onc, Neurosurgery.
Pt/daughter want care at [place] if any surgical intervention needed.
Case d/w Rad Onc, they recommended getting biopsy and started with neurosurgery.
RCC traditionally thought of as relatively radiation insensitive.
Hospitalist d/w IR who felt that image-guided biopsy would be low-yield and high-risk.
Discussed with pt that systemic therapy with Opdivo/Yervoy could induce remission lasting years and that I am not considering her to be 'terminal.'
Recommend inpt transfer to [facility] for neurosurg eval as per pt/family wishes.
Patient History
History of Present Illness
68-year-old woman with history of renal cell carcinoma which was noted incidentally when she presented to the emergency room with abdominal pain in October 2023. She underwent radical left nephrectomy on January 05, 2024. Pathology revealed 9.7
cm clear-cell renal cell carcinoma grade 3, confined to the kidney, negative resection margins, T2a. There were no sarcomatoid or rhabdoid features identified and no regional lymph nodes were submitted or found. She saw Dr. wSanson on February 06 to
discuss possible adjuvant therapy. NCCN guidelines were reviewed recommending surveillance alone for stage II, grade 3 renal cell carcinoma. Data from keynote-564 were discussed, including small overall survival benefit with Keytruda and study
including patients with stage II, grade 3 disease. Patient and daughter ultimately decided to proceed with surveillance alone. Plan was for patient to follow up with Dr. Adler for surveillance.
Pt came to the ER on July 08 with complaint of worsening back pain. About a month ago she tried to open a large canister and the pain started after that. She had otherwise been feeling well. CT C/A/P showed pathologic fracture of T11 vertebral
body with epidural extension of soft tissue mass and associated moderate to severe narrowing of the spinal canal at that level. She went on to MRI showing same. CT was otherwise without evidence of metastatic disease. Patient admits to recent
onset of nausea, denies headache. Patient states, 'someone in the ER told me I need to be seen at [place] or [place].'
Past-Medical/Surgical History
Past Medical History
Cancer (Kidney) and Hypothyroidism (Gerson's thyroiditis)
Past Surgical History
Nephrectomy, Cholecystectomy, Orthopedic and Tonsillectomy
Social History
Tobacco: Non-smoker
Alcohol: None
Drug: None
Personal: Single
Living: with family
Employment: Employed (Works in childcare)
Family History
Mother had colon cancer, brother had non-Hodgkin lymphoma
Pt underwent germline mutation testing which returned negative
Patient Medication
�Medication �Instructions �Recorded �Confirmed �Last Taken �Type
ascorbic acid (vitamin C) 500 mg 500 mg PO DAILY PRN supplement 11/12/23 07/09/24 12/30/23 History
tablet (Vitamin C)
bismuth subsalicylate 262 mg/15 mL 524 mg PO DAILYPRN PRN stomach 11/12/23 01/03/24 01/02/24 16:00 History
oral suspension (Pepto-Bismol) discomfort
levothyroxine 75 mcg tablet 75 mcg PO DAILY Thyroid 11/12/23 07/09/24 07/09/24 History
75 mcg
magnesium 250 mg tablet 250 mg PO QPM Supplement 11/12/23 07/09/24 12/30/23 History
vitamin B complex 1 tab PO DAILY Supplement 11/12/23 01/03/24 12/30/23 History
cholecalciferol (vitamin D3) 50 25 mcg PO QPM Supplement 12/30/23 07/09/24 12/30/23 History
mcg (2,000 unit) tablet (Vitamin
D3)
omega-3 fatty acids 1,000 mg PO DAILY Supplement 12/30/23 01/03/24 12/30/23 History
ondansetron 4 mg disintegrating 4 mg PO Q8H PRN nausea #15 tabs 01/05/24 07/09/24 Unknown Rx
tablet
oxycodone-acetaminophen 5 mg-325 1 tab PO Q4HPRN PRN moderate pain 01/05/24 Unknown Rx
mg tablet #15 tabs
Active Medications
Generic Name Dose Route Start Last Admin
Trade Name Freq PRN Reason Stop Dose Admin
Acetaminophen 650 mg 07/08/24 23:40
Acetaminophen 325 Mg Tablet PO 08/05/24 23:39
Q4HPRN PRN
mild pain/STEVENS/temp> 100.4F
Bisacodyl 10 mg 07/08/24 23:40
Bisacodyl 10 Mg Rectal Suppository RECTAL 08/05/24 23:39
O85YLEI PRN
constipation
Hydromorphone HCl 0.25 mg 07/09/24 14:06
Hydromorphone 0.25 Mg/0.5 Ml Syringe IV 07/23/24 14:05
Q4HPRN PRN
breakthorugh pain
Levothyroxine Sodium 75 mcg 07/09/24 06:00 07/09/24 05:33
Levothyroxine 75 Mcg Tablet PO 08/06/24 05:59 75 mcg
DAILY @ 0600 FRANKIE Administration
Lorazepam 0.5 mg 07/08/24 23:40 07/09/24 10:20
Lorazepam 2 Mg/Ml Vial IV 08/05/24 23:39 0.5 mg
ONCE PRN Administration
anxiety
Oxycodone HCl 2.5 mg 07/09/24 13:59 07/09/24 14:31
Oxycodone 5 Mg Regular Release Tablet PO 07/23/24 13:58 2.5 mg
Q4HPRN PRN Administration
mod pain
Oxycodone HCl 5 mg 07/09/24 13:59
Oxycodone 5 Mg Regular Release Tablet PO 07/23/24 13:58
Q4HPRN PRN
sev pain
Polyethylene Glycol 17 grams 07/08/24 23:40
Polyethylene Glycol Powder 17 Grams Packet PO 08/05/24 23:39
DAILYPRN PRN
constipation
Senna/Docusate Sodium 1 tablet 07/08/24 23:40
Docusate W/Senna (Patricia-Colace) Tablet PO 08/05/24 23:39
BIDPRN PRN
constipation
Sodium Chloride 0 flush 07/08/24 23:00
Sodium Chloride 0.9% (Flush) Syringe IV 08/05/24 22:59
PER PROTOCOL FRANKIE
Sodium Chloride 0.25 ml 07/08/24 23:48 07/09/24 10:20
Nss (Pf) 10 Ml Vial For Ativan 0.5 Mg Dose IV 08/05/24 23:47 0.25 ml
ONCE PRN PRN Administration
IV LORAZEPAM DILUTION
Review of Systems
-
History Source: Patient, Family and Records
All Other Systems: Reviewed and Negative
Physical Exam
-
General: Well Developed, Well Nourished and No Apparent Distress
HEENT: Moist Mucous Membranes; Negative Jaundice
Cardiology: Normal Sinus Rhythm, S1 and S2
Pulmonary: Clear; Negative Wheezes or Rales
GI: Soft and Normal Bowel Sounds
Genito-Urinary: Deferred by me
Musculoskeletal: No Clubbing, No Cyanosis and No Edema
Extremities: Negative Phlebitic Signs or Edema
Neurology: Non Focal
Skin: Warm and Dry
Hematologic / Lymphatic: No Lymphadenopathy
Psych: Calm and Intact Judgement/Insight
Labs
Lab Results
WBC 9.8 10^3/uL (4.8-10.8) 07/09/24 09:27
RBC 4.34 10^6/uL (4.20-5.40) 07/09/24 09:27
Hgb 11.1 g/dL (12.0-16.0) L 07/09/24:
Hct 34.5 % (37.0-47.0) L 07/09/24:
MCV 79.5 fL (81.0-99.0) L 07/09/24
MCH 25.6 pg (27.0-31.0) L 07/09/24:
MCHC 32.2 g/dL (33.0-37.0) L 07/09/24:
RDW 15.9 % (11.5-14.5) H 07/09/24:
Plt Count 245 10^3/uL (130-400) 07/09/24:
MPV 8.3 fL (7.4-10.4) 07/09/24:
Abs Immat Gran (auto) 0.0 10^3/uL (0-0.05) 07/09/24
Absolute Neuts (auto) 6.8 10^3/uL (1.4-6.5) H 07/09/24:
Absolute Lymphs (auto) 1.9 10^3/uL (1.2-3.4) 07/09/24:
Absolute Monos (auto) 0.7 10^3/uL (0.1-0.6) H 07/09/24:
Absolute Eos (auto) 0.3 10^3/uL (0-0.7) 07/09/24:
Absolute Basos (auto) 0.1 10^3/uL (0-0.2) 07/09/24:
Immature Gran % 0.4 % (0-0.5) 07/09/24:
Neutrophils % 69.1 % (42.2-75.2) 07/09/24:
Lymphocytes % 19.0 % (20.5-51.1) L 07/09/24:
Monocytes % 7.4 % (1.7-9.3) 08/19/24 09:27
Eosinophils % 3.4 % (0-6) 07/09/24 09:27
Basophils % 0.7 % (0-2) 07/09/24 09:
Creatinine 1.2 mg/dL (0.6-1.0) H 07/09/24 09:27
Vital Signs
Vital Signs
Temp Pulse Resp BP Pulse Ox
98.2 F 74 16 157/84 96
07/09/24 15:10 07/09/24 15:10 07/09/24 15:10 07/09/24 15:10 07/09/24 15:10
[2024-07-09 20:08] VITALS: BP 123/72
--- NOTE | 2024-07-09 20:13 | PTCARENOTE ---
Pt d/c'd to [facility] with all belongings - IV site d/c'd prior to transfer.
--- NOTE | 2024-07-10 07:28 | W.DCSUMMARY ---
Discharge Summary
Discharge Data
Date of Admission: 07/08/24
Date of Discharge: 07/09/24
-
Pending Results: No
Hospital Course
Discharging Physician : Dr Sujit Prater
Disposition : To [facility]
Primary care physician : Unknown
Principal Discharge diagnosis :
T11 epidural presumed metastatic lesion with spinal stenosis
Back pain
Chronic Discharge diagnosis :
History of left kidney clear-cell cancer status post total radical nephrectomy
Hypothyroidism
Hospital Course :
Patient is a 68 female with past medical history of left kidney clear-cell cancer requiring total radical nephrectomy earlier this year in December came to ER with new onset of back pain. Patient did not have significant radiculopathy and mainly
localized back pain and spine. Patient have chronic neuropathy symptoms and no change in the symptoms were noted. Patient had initial CT chest abdomen pelvis in ER which showed pathological T11 vertebral body fracture with extension of soft tissue
mass suspecting of possible malignancy. Follow-up MRI of thoracic spine was done which showed epidural likely metastatic lesion with enhancement of epidural layer. There was spinal canal stenosis as well. Neurosurgery and oncology were involved
in care and patient was initially recommended to undergo IR guided biopsy. Interventional radiologist felt the area difficult to reach and suspected will have low yield on biopsy. Possible need of neurosurgical biopsy was discussed although
patient did not want surgery and gallstone. Patient case was discussed with [place] neurosurgery/hospitalist and accepted patient over for further diagnosis/treatment.
Important imaging findings :
MRI T spine
1. 2.8 cm LYTIC OSSEOUS METASTASIS in the left posterior aspect of the T11 VERTEBRAL BODY with osseous destruction of the posterior cortex and extension of the metastasis in the anterior epidural space. Mild spinal cord compression and central
canal stenosis at the T11 level.
2. Small acute fracture of the right side of the superior endplate of T12.
3. Moderate multilevel discogenic degenerative disease in the cervical spine with small disc-osteophyte complexes causing mild multilevel spinal cord compression.
4. Previous left nephrectomy.
5. Moderate scarring in the upper pole of the right kidney.
Procedure findings :
None
Discharge Plan
-
Patient Disposition: Acute Care Hospital
Condition: Good
Discharge Orders:
Discharge Patient (As Directed); Ordered 07/09/24
Ordered By: Sujit Prater
Discharge Date and Time
Discharge Date/Time: 07/09/24 20:29
Print Language: ALGERIAN
== END 2024-07-09 20:29 | disposition short-term general hospital (02) | DRG 543 ==
LOC: 4 WEST ACU 23:04
PROVIDERS: Nurse Practitioner; ADMITTING PHYSICIAN Internal Medicine; ATTENDING PHYSICIAN Hospitalist; EMERGENCY PHYSICIAN Emergency Medicine; OTHER PHYSICIAN Internal Medicine Hematology & Oncology; OTHER PHYSICIAN Neurological Surgery
DX: C79.51 Secondary malignant neoplasm of bone (principal); G99.2 Myelopathy in diseases classified elsewhere; M84.58XA Pathological fracture in neoplastic disease, other specified site, initial encounter for fracture; N17.9 Acute kidney failure, unspecified; G89.3 Neoplasm related pain (acute) (chronic); M48.04 Spinal stenosis, thoracic region; E06.3 Autoimmune thyroiditis; G62.9 Polyneuropathy, unspecified; M25.78 Osteophyte, vertebrae; R11.0 Nausea; J30.1 Allergic rhinitis due to pollen; Z85.528 Personal history of other malignant neoplasm of kidney; Z90.49 Acquired absence of other specified parts of digestive tract; Z90.5 Acquired absence of kidney; Z80.0 Family history of malignant neoplasm of digestive organs; Z82.49 Family history of ischemic heart disease and other diseases of the circulatory system; Z88.5 Allergy status to narcotic agent; Z88.0 Allergy status to penicillin; Z79.890 Hormone replacement therapy; Z80.7 Family history of other malignant neoplasms of lymphoid, hematopoietic and related tissues; Z11.52 Encounter for screening for COVID-19
CPT/HCPCS: 71260; 72157; 74177; 80048; 80053; 81003; 81015; 83690; 85025; 86803; 87811; 96361; 96374; 96375; 99285; A9575; Q9967